=== PATIENT | female | born 1970 | race Caucasian/White ===

== ENCOUNTER → 2018-03-26 | Outpatient (CLI) | payer BC ==
--- NOTE | 2018-03-26 10:49 | MRI ---
STUDY: MRI OF THE LUMBAR SPINE HISTORY: Intervertebral disc disease. Low back pain. Comparison: None. Technique: Multiplanar multi-sequence MRI of the lumbar spine was performed. Sagittal T1, sagittal T 2, and STIR images, axial T1, and axial T2 images were obtained. Findings: Sagittal images: Vertebral body heights are within normal limits. There is grade 1 retrolisthesis of L5 on S1. Marrow signal is age-appropriate. Focal fat is noted at L3. There is degenerative disc disease at several le vels, most notably at L4/5 and L5/S1. The conus medullaris is normal in appearance terminating at th e level of L1/2. Axial images: T12 -- L1: Normal. L1 -- L2: Normal. L2 -- L3: Normal. L3 -- L4: Normal. L4 -- L5: There is a broad-based disc bulge, bilateral facet arthropathy and ligamentum flavum infold ing. The central canal and neural foramina are adequate. L5 -- S1: There is a broad-based disc bulge, bilateral facet arthropathy and ligamentum flavum infold ing. The central canal and neural foramina are adequate. IMPRESSION: 1. Mild lumbar spondylosis as described, most notably at L4/5 and L5/S1. 2. No evidence of significant spinal stenosis or neural foraminal narrowing. Reported By:
== END | disposition home or self-care (01) | DRG 552 ==
LOC: RAD 09:09
PROVIDERS: ATTEND Internal Medicine
DX: M54.17 Radiculopathy, lumbosacral region (principal); M47.896 Other spondylosis, lumbar region
CPT/HCPCS: 72148